=== PATIENT | female | born 2000 | race Two or more races ===

== ENCOUNTER 2025-09-03 13:00 | Outpatient (CLI) | payer BC ==
[2025-09-03 13:50] LABS: Hematocrit 46.3 % (36.0-46.0); Hemoglobin 15.5 g/dL (12.2-16.2); Mean Corpuscular Hemoglobin 29.2 pg (28.0-32.0); Mean Corpuscular Volume 87.1 fL (80.0-100.0); Nucleated Red Blood Cells % 0.1 %
[2025-09-03 13:55] LABS: Alanine Aminotransferase 16 U/L (7-40); Albumin 4.6 g/dL (3.2-4.8); Alkaline Phosphatase 67 U/L (46-116); Anion Gap 8 (5-15); BUN/Creatinine Ratio 12.4 (10.0-20.0); Blood Urea Nitrogen 11 mg/dL (9-23); Calcium 9.4 mg/dL (8.7-10.4); Carbon Dioxide 26 mmol/L (20-31); Chloride 103 mmol/L (98-107); Glucose 93 mg/dL (74-106); Potassium 4.2 mmol/L (3.5-5.1); Sodium 137 mmol/L (136-145); Total Protein 7.3 g/dL (5.7-8.2); Triglycerides 119 mg/dL (< 150)
[2025-09-03 13:56] LABS: Cholesterol 182 mg/dL (< 200); HDL Cholesterol 57 mg/dL (40-59)
[2025-09-03 13:59] LABS: Ferritin 16.7 ng/mL (10-291)
[2025-09-03 14:00] LABS: Free T4 (Free Thyroxine) 1.15 ng/dL (0.89-1.76)
[2025-09-03 14:05] LABS: Bilirubin, Total 1.8 mg/dL (0.2-1.0)
[2025-09-03 16:04] LABS: Hepatitis A Total Antibody Positive (Negative); Hepatitis B Surface Antigen Negative (Negative); Hepatitis C Antibody Negative (Negative)
== END 2025-09-03 17:00 | disposition home or self-care (01) ==
LOC: LAB 13:00
PROVIDERS: ATTEND Licensed Practical Nurse
DX: E55.9 Vitamin D deficiency, unspecified (principal); Z13.1 Encounter for screening for diabetes mellitus; Z00.01 Encounter for general adult medical examination with abnormal findings
CPT/HCPCS: 36415; 80053; 80061; 82043; 82306; 82607; 82728; 82746; 83036; 84439; 84443; 85025; 86704; 86706; 86708; 86803; 87340